=== PATIENT | male | born 1965 | race Caucasian/White ===

== ENCOUNTER → 2023-02-24 07:33 | Outpatient (REF) | payer OTHER, SELFPAY | LOC: EMG 07:33 | PROVIDERS: ATTENDING PHYSICIAN Orthopaedic Surgery Hand Surgery; FAMILY PHYSICIAN Family Medicine | DX: R20.0 Anesthesia of skin (principal) | CPT/HCPCS: 95886; 95911 ==

== ENCOUNTER 2023-10-11 06:21 | Day surgery (SDC) | payer OTHER, SELFPAY ==
[2023-09-18 09:54] LABS: Hematocrit 45.8 % (39.0-52.0); Hemoglobin 16.6 g/dL (13.0-18.0); Mean Corp Hgb Conc. 36.2 g/dL (33.0-37.0); Mean Corpuscular Hgb 33.2 pg (27.0-31.0); Mean Corpuscular Volume 91.6 fL (80.0-94.0); Mean Platelet Volume 10.7 fL (7.4-10.4); Platelet Count 152 10^3/uL (130-400); Red Cell Dist. Width 12.2 % (11.5-14.5); White Blood Cell Count 6.1 10^3/uL (4.8-10.8)
[2023-09-18 10:20] LABS: Blood Urea Nitrogen 15 mg/dl (9-20); Calcium 9.5 mg/dl (8.4-10.2); Carbon Dioxide 30 mmol/L (22-30); Chloride 101 mmol/L (98-107); Glucose 107 mg/dl (70-99); Potassium 4.3 mmol/L (3.5-5.1); Sodium 137 mmol/L (135-145); eGFR > 60.00
[2023-09-19 11:14] VITALS: BMI 36.7
[2023-10-11] VITALS (8 sets, daily range): BP systolic 130–163; BP diastolic 69–92; BMI 36.7
[2023-10-11] MEDS: NORMOSOL-R 1000 IV (10:30)
[2023-10-11] MEDS: TYLENOL 1000 MG PO (10:30)
[2023-10-11] MEDS: CELEBREX 200 MG PO (10:30)
[2023-10-11 13:27] LABS: Glucose - Point of Care 162 mg/dl (70-99)
[2023-10-11] MEDS: DILAUDID 0.5 MG IV (15:12)
--- NOTE | 2023-10-11 15:46 | SUR.PHASEI ---
patient post op tendon re- implantation. diaphoretic on arrival . blankets off. vss, treated for pain x1 with dilaudid 0.5mg IV with some relief. diaphoresis has lessened - patient states 'normal to sweat'.
[2023-10-11] MEDS: ROXICODONE 5 MG PO (16:15)
== END 2023-10-11 16:43 | disposition home or self-care (01) ==
LOC: SDS 06:21
PROVIDERS: ATTENDING PHYSICIAN Orthopaedic Surgery Hand Surgery; FAMILY PHYSICIAN Family Medicine; OTHER PHYSICIAN Internal Medicine Hypertension Specialist
DX: S14.3XXA Injury of brachial plexus, initial encounter (principal); X58.XXXA Exposure to other specified factors, initial encounter
CPT/HCPCS: 25312 ×2; 26480 ×2; 36415; 80048; 82962; 85027; 93005; C1713

== ENCOUNTER 2023-11-16 11:55 | Outpatient (RCR) | payer OTHER, SELFPAY | END 2023-11-16 23:59 | disposition home or self-care (01) | LOC: ROT 11:55 | PROVIDERS: ATTENDING PHYSICIAN Orthopaedic Surgery Hand Surgery | DX: Z47.89 Encounter for other orthopedic aftercare (principal); Z73.6 Limitation of activities due to disability | CPT/HCPCS: 97010; 97022; 97110; 97140; 97166; 97535; 97760 ==

== ENCOUNTER 2023-12-21 11:02 | Outpatient (RCR) | payer OTHER, SELFPAY | END 2023-12-21 23:59 | disposition home or self-care (01) | LOC: ROT 11:02 | PROVIDERS: ATTENDING PHYSICIAN Orthopaedic Surgery Hand Surgery | DX: Z47.89 Encounter for other orthopedic aftercare (principal); Z73.6 Limitation of activities due to disability | CPT/HCPCS: 97010; 97018; 97022; 97110; 97140; 97535; 97760 ==

== ENCOUNTER 2024-01-16 18:18 | Outpatient (RCR) | payer OTHER, SELFPAY | END 2024-01-16 23:59 | disposition home or self-care (01) | LOC: ROT 18:18 | PROVIDERS: ATTENDING PHYSICIAN Orthopaedic Surgery Hand Surgery | DX: Z47.89 Encounter for other orthopedic aftercare (principal); Z73.6 Limitation of activities due to disability; M79.641 Pain in right hand; M79.89 Other specified soft tissue disorders | CPT/HCPCS: 97018; 97022; 97110; 97140; 97760 ==

== ENCOUNTER 2024-02-15 15:55 | Outpatient (RCR) | payer OTHER, SELFPAY | END 2024-02-15 23:59 | disposition home or self-care (01) | LOC: ROT 15:55 | PROVIDERS: ATTENDING PHYSICIAN Orthopaedic Surgery Hand Surgery | DX: Z47.89 Encounter for other orthopedic aftercare (principal); Z73.6 Limitation of activities due to disability; M79.641 Pain in right hand; M79.89 Other specified soft tissue disorders | CPT/HCPCS: 97014; 97018; 97110; 97140 ==

== ENCOUNTER 2024-03-22 13:59 | Outpatient (RCR) | payer OTHER, SELFPAY | END 2024-03-22 23:59 | disposition home or self-care (01) | LOC: ROT 13:59 | PROVIDERS: ATTENDING PHYSICIAN Orthopaedic Surgery Hand Surgery | DX: Z47.89 Encounter for other orthopedic aftercare (principal); Z73.6 Limitation of activities due to disability; M79.641 Pain in right hand; M79.89 Other specified soft tissue disorders | CPT/HCPCS: 97018; 97110; 97140; 97760 ==

== ENCOUNTER 2024-04-08 11:22 | Outpatient (RCR) | payer OTHER, SELFPAY | END 2024-04-08 23:59 | disposition home or self-care (01) | LOC: ROT 11:22 | PROVIDERS: ATTENDING PHYSICIAN Orthopaedic Surgery Hand Surgery | DX: Z47.89 Encounter for other orthopedic aftercare (principal); Z73.6 Limitation of activities due to disability; M79.641 Pain in right hand; M79.89 Other specified soft tissue disorders | CPT/HCPCS: 97018; 97110; 97140 ==

== ENCOUNTER 2024-05-09 10:19 | Outpatient (RCR) | payer OTHER, SELFPAY | END 2024-05-09 23:59 | disposition home or self-care (01) | LOC: ROT 10:19 | PROVIDERS: ATTENDING PHYSICIAN Orthopaedic Surgery Hand Surgery | DX: Z47.89 Encounter for other orthopedic aftercare (principal); Z73.6 Limitation of activities due to disability; M79.641 Pain in right hand; M79.89 Other specified soft tissue disorders | CPT/HCPCS: 97018; 97110; 97140 ==

== ENCOUNTER → 2025-01-24 09:45 | Outpatient (REF) | payer OTHER, SELFPAY ==
[2025-01-24 10:28] LABS: Hematocrit 49.1 % (39.0-52.0); Hemoglobin 16.6 g/dL (13.0-18.0); Mean Corp Hgb Conc. 33.8 g/dL (33.0-37.0); Mean Corpuscular Volume 96.7 fL (80.0-94.0); Nucleated Red Blood Cells % 0 % (-); Platelet Count 142 10^3/uL (130-400); Red Cell Dist. Width 12.1 % (11.5-14.5)
[2025-01-24 10:56] LABS: Blood Urea Nitrogen 19 mg/dl (9-20); Calcium 9.6 mg/dl (8.4-10.2); Carbon Dioxide 33 mmol/L (22-30); Chloride 99 mmol/L (98-107); Glucose 103 mg/dl (70-99); Potassium 4.5 mmol/L (3.5-5.1); Sodium 136 mmol/L (135-145); eGFR > 60.00
== END ==
LOC: RCS 09:45
PROVIDERS: ATTENDING PHYSICIAN Orthopaedic Surgery Hand Surgery; FAMILY PHYSICIAN Family Medicine
DX: Z01.818 Encounter for other preprocedural examination (principal)
CPT/HCPCS: 36415; 80048; 85025; 93005